=== PATIENT | male | born 1990 | race Caucasian/White ===

== ENCOUNTER 2022-06-28 13:31 | Emergency (ER) | payer SELFPAY ==
[~2022-06-28] VITALS: Ht 170 cm; Wt 79.0 kg
[~2022-06-28 13:31] MED LIST: ACHD5005 PO; DAPS100T3 PO; DOXY-311 PO; HYDR28CR10 TP; MELA1TAB16 PO; NAPR220C11 PO; PRD20T PO
[2022-06-28] MEDS ORDERED: NS IV 1000 ML 1,000 ML IV SCH (13:45)
[2022-06-28] MEDS ORDERED: KETOROLAC 30 MG/ML VIAL IV ONE (13:45)
[2022-06-28] MEDS ORDERED: ONDANSETRON 4 MG/2 ML (SDV) Z0FRAN IVP ONE (13:45)
--- NOTE | 2022-06-28 13:45 | ED Abdominal Pain ---
General Chief Complaint: Abdominal/GI Problems Stated Complaint: ABDOMINAL PAIN Nursing Triage Note: RIGHT SIDED FLANK PAIN THAT STARTED THIS MORNING. Source of Information: Patient Exam Limitations: No Limitations History of Present Illness Date Seen by Provider: Jun 28, 2022 Time Seen by Provider: 13:43 Initial Comments Patient presents to the emergency department with right sided flank pain that started this AM. No history of of kidney stones that he is aware of. Denies nausea, vomiting, diarrhea. Denies dysuria. Does admit to meth use. Timing/Duration: 4-6 Hours Severity/Quality: Moderate, Aching Location: Flank (right flank) Radiation: No Radiation Activities at Onset: None Modifying Factors: Improves With Resting Associated Symptoms: Back Pain; No Diaphoresis, No Fever/Chills, No Fatigue, No Headache, No Heartburn, No Nausea/Vomiting Allergies and Home Medications Allergies Coded Allergies: menthol (Verified Allergy, Mild, 11/21/12) Patient Home Medication List Home Medication List Reviewed: Yes Dapsone (Dapsone) 100 Mg Tablet, 100 MG PO DAILY Prescribed by: TATIANA MCDONALD on 05/17/161416 Doxycycline Monohydrate (Doxycycline Monohydrate) 100 Mg Capsule, 100 MG PO BID Prescribed by: TATIANA MCDONALD on 05/17/16 141 Hydrocodone Bit/Acetaminophen (HYDROcodone/APAP 5 MG/325 MG TAB) 1 Tab Tab, 1 TAB PO Q6H Prescribed by: Lupe Hart on 06/28/22 151 Naproxen Sodium (Aleve) 220 Mg Capsule, 220 MG PO Q12H PRN for PAIN, (Reported) Entered as Reported by: ROCKY TORRES on 05/17/16 0011 Ondansetron (Ondansetron Odt) 4 Mg Tab.rapdis, 4 MG SL Q4H PRN for NAUSEA/VOMITING Prescribed by: Lupe Hart on 06/28/22 151 Tamsulosin HCl (Flomax) 0.4 Mg Cap, 0.4 MG PO DAILY Prescribed by: Lupe Hart on 06/28/22 151 Review of Systems Review of Systems Constitutional: No chills, No dizziness, No fever Respiratory: No Symptoms Reported Cardiovascular: No Symptoms Reported Gastrointestinal: Denies Abdominal Pain, Denies Diarrhea, Denies Nausea, Denies Vomiting Genitourinary: Denies Burning, Denies Drainage, Denies Frequency; Flank Pain (right sided); Denies Urgency Skin: no symptoms reported All Other Systems Reviewed Negative Unless Noted: Yes Past [id number]-[id number] Hx Patient Social History Tobacco Use?: Yes Smoking Status: Current Everyday Smoker Substance use?: Yes Substance type: Methamphetamine Alcohol Use?: No Immunizations Up To Date Tetanus Booster (TDap): Less than 5yrs Seasonal Allergies Seasonal Allergies: No Past Medical History Reproductive Disorders: No Sexually Transmitted Disease: No Fractures Hyperthyroidism ADD/ADHD Family Medical History Reviewed Nursing Family Hx Abdominal aortic aneurysm paternal grandfather, Onset:Unknown Arthritis paternal grandfather, Onset:Unknown Diabetes mellitus 19 FATHER, Onset:Unknown FHx: COPD (chronic obstructive pulmonary disease) paternal grandmother, Onset:Unknown No Pertinent Family Hx Physical Exam Vital Signs Vital Signs - First Documented 06/28/22 13:38 Temp 36.8 Resp 70 B/P (MAP) 148/96 (113) Pulse Ox 98 O2 Delivery Room Air Capillary Refill : Less Than 3 Seconds Height/Weight/BMI Height: 5'10.00" Weight: 160lbs. 3.0oz. [id number]; 27.00 BMI Method:Stated General Appearance: mild distress (pain) Respiratory: chest non-tender, lungs clear, normal breath sounds, no respiratory distress, no accessory muscle use Cardiovascular: regular rate, rhythm, no edema Gastrointestinal: normal bowel sounds, non tender, soft, other (right flank pain) Extremities: normal range of motion, non-tender Back: CVA tenderness (R); No CVA tenderness (L) Neurologic/Psychiatric: alert, normal mood/affect, oriented x 3 Skin: normal color, warm/dry Progress/Results/Core Measures Results/Orders Lab Results Laboratory Tests Test 06/28/22 13:46 06/28/22 13:54 Range/Units White Blood Count 9.9 4.3-11.0 10^3/uL Red Blood Count 5.47 4.30-5.52 10^6/uL Hemoglobin 15.9 13.3-17.7 g/dL Hematocrit 46 40-54 % Mean Corpuscular Volume 85 80-99 fL Mean Corpuscular Hemoglobin 29 25-34 pg Mean Corpuscular Hemoglobin Concent 34 32-36 g/dL Red Cell Distribution Width 12.3 10.0-14.5 % Platelet Count 243 130-400 10^3/uL Mean Platelet Volume 10.5 9.0-12.2 fL Immature Granulocyte % (Auto) 0 % Neutrophils (%) (Auto) 71 42-75 % Lymphocytes (%) (Auto) 21 12-44 % Monocytes (%) (Auto) 5 0-12 % Eosinophils (%) (Auto) 2 0-10 % Basophils (%) (Auto) 0 0-10 % Neutrophils # (Auto) 7.1 1.8-7.8 10^3/uL Lymphocytes # (Auto) 2.1 1.0-4.0 10^3/uL Monocytes # (Auto) 0.5 0.0-1.0 10^3/uL Eosinophils # (Auto) 0.2 0.0-0.3 10^3/uL Basophils # (Auto) 0.0 0.0-0.1 10^3/uL Immature Granulocyte # (Auto) 0.0 0.0-0.1 10^3/uL Sodium Level 139 135-145 MMOL/L Potassium Level 4.1 3.6-5.0 MMOL/L Chloride Level 108 H 98-107 MMOL/L Carbon Dioxide Level 21 21-32 MMOL/L Anion Gap 10 5-14 MMOL/L Blood Urea Nitrogen 17 7-18 MG/DL Creatinine 1.34 H 0.60-1.30 MG/DL Estimat Glomerular Filtration Rate 73 BUN/Creatinine Ratio 13 Glucose Level 151 H 70-105 MG/DL Calcium Level 9.4 8.5-10.1 MG/DL Corrected Calcium 9.1 8.5-10.1 MG/DL Total Bilirubin 0.4 0.1-1.0 MG/DL Aspartate Amino Transf (AST/SGOT) 14 5-34 U/L Alanine Aminotransferase (ALT/SGPT) 13 0-55 U/L Alkaline Phosphatase 94 40-136 U/L Total Protein 7.2 6.4-8.2 GM/DL Albumin 4.4 3.2-4.5 GM/DL Urine Color YELLOW Urine Clarity CLEAR Urine pH 6.0 5-9 Urine Specific [place] >=1.030 1.016-1.022 Urine Protein NEGATIVE NEGATIVE Urine Glucose (UA) NEGATIVE NEGATIVE Urine Ketones NEGATIVE NEGATIVE Urine Nitrite NEGATIVE NEGATIVE Urine Bilirubin NEGATIVE NEGATIVE Urine Urobilinogen 1.0 < = 1.0 MG/DL Urine Leukocyte Esterase NEGATIVE NEGATIVE Urine RBC (Auto) 3+ H NEGATIVE Urine RBC 50-100 H /HPF Urine WBC RARE /HPF Urine Squamous Epithelial Cells RARE /HPF Urine Crystals NONE /LPF Urine Bacteria NEGATIVE /HPF Urine Casts NONE /LPF Urine Mucus SMALL H /LPF Urine Culture Indicated NO Urine Opiates Screen NEGATIVE NEGATIVE Urine Oxycodone Screen NEGATIVE NEGATIVE Urine Methadone Screen NEGATIVE NEGATIVE Urine Propoxyphene Screen NEGATIVE NEGATIVE Urine Barbiturates Screen NEGATIVE NEGATIVE Ur Tricyclic Antidepressants Screen NEGATIVE NEGATIVE Urine Phencyclidine Screen NEGATIVE NEGATIVE Urine Amphetamines Screen POSITIVE H NEGATIVE Urine Methamphetamines Screen POSITIVE H NEGATIVE Urine Benzodiazepines Screen NEGATIVE NEGATIVE Urine Cocaine Screen NEGATIVE NEGATIVE Urine Cannabinoids Screen NEGATIVE NEGATIVE My Orders Orders - LUPE HART APRN Ct Abd/Pelvis Wo(Kidney Stone) (06/28/22 13:45) Ed Iv/Invasive Line Start (06/28/22 13:45) Ua Culture If Indicated (06/28/22 13:45) Ketorolac Injection (Toradol Injection) (06/28/22 13:45) Ns Iv 1000 Ml (Sodium Chloride 0.9%) (06/28/22 13:45) Ondansetron Injection (Zofran Injectio (06/28/22 13:45) Cbc With Automated Diff (06/28/22 13:45) Comprehensive Metabolic Panel (06/28/22 13:45) Drug Screen Stat (Urine) (06/28/22 13:45) Fentanyl Inj (Sublimaze Injection) (06/28/22 15:00) Hydrocodone/Apap 5/325 Tablet (Lortab 5 (06/28/22 15:00) Medications Given in ED Current Medications Medications Dose Ordered Sig/Thiago Route Start Time Stop Time Status Last Admin Dose Admin Acetaminophen/ Hydrocodone Bitart 1 ea ONCE ONCE PO 06/28/22 15:00 06/28/22 15:01 DC 06/28/22 14:54 1 EA Fentanyl Citrate 50 mcg ONCE ONCE IVP 06/28/22 15:00 06/28/22 15:01 DC 06/28/22 14:54 50 MCG Ketorolac Tromethamine 30 mg ONCE ONCE IV 06/28/22 13:45 06/28/22 13:47 DC 06/28/22 14:00 30 MG Ondansetron HCl 4 mg ONCE ONCE IVP 06/28/22 13:45 06/28/22 13:47 DC 06/28/22 14:00 4 MG Vital Signs/I&O 06/28/22 13:38 Temp 36.8 Resp 70 B/P (MAP) 148/96 (113) Pulse Ox 98 O2 Delivery Room Air Blood Pressure Mean: 113 Progress Progress Note : Progress Note Patient presents to the emergency department for right sided flank pain. No history of kidney stones that he is aware of. Took medication at home with little to no change in symptoms. 1445: Patient reports that his pain is better at this time but is still having pain. Will give some Fentanyl and then some Lortab while here and then likely discharge home shortly after that. 1515: Patient was sleeping in room. Reports that pain is better. Will send prescriptions to pharmacy. Instructed that he needs to follow up with Urology tomorrow. Reasons to return to the ER were discussed with patient in addition. Departure Impression Primary Impression: Kidney stone Disposition: HOME, SELF-CARE Condition: Stable Departure-Patient Inst. Decision time for Depature: 15:15 Referrals: GENARO,LOCAL PHYSICIAN (PCP) Primary Care Physician DANIA MIRANDA MD Patient Instructions: Kidney Stones in Adults Add. Discharge Instructions: 1. Home and rest. 2. Push fluids. 3. Alternate Tylenol/Ibuprofen as needed for pain. 4. Follow up with PCP as needed. 5. Follow up with Urologist this week. 6. Zofran as needed for nausea. 7. Flomax as directed. 8. Hydrocodone as needed for severe pain. This medication can cause constipation so consider taking a stool softner while on this medication. No driving while taking this medication. 9. Return here if worse or concerns. All discharge instructions reviewed with patient and/or family. Voiced understanding. Scripts Ondansetron (Ondansetron Odt) 4 Mg Tab.rapdis 4 MG SL Q4H PRN for NAUSEA/VOMITING, #14 TAB Prov: LUPE HART APRN 06/28/22 Hydrocodone Bit/Acetaminophen (HYDROcodone/APAP 5 MG/325 MG TAB) 1 Tab Tab 1 TAB PO Q6H for Pain, #8 TAB 0 Refills Prov: LUPE HART APRN 06/28/22 Tamsulosin HCl (Flomax) 0.4 Mg Cap 0.4 MG PO DAILY for 14 Days, #14 CAP Prov: LUPE HART APRN 06/28/22 Work/School Note: Work Release Form Date Seen in the Emergency Department: Jun 28, 2022 Return to Work: Jul 01, 2022 Restrictions: No Restrictions LUPE HART APRN Jun 28, 2022 13:45
[2022-06-28 13:54] LABS: BASOPHILS % (AUTO) 0 % (0-10); EOSINOPHILS # (AUTO) 0.2 10^3/uL (0.0-0.3); EOSINOPHILS % (AUTO) 2 % (0-10); HEMATOCRIT 46 % (40-54); HEMOGLOBIN 15.9 g/dL (13.3-17.7); LYMPHOCYTES # (AUTO) 2.1 10^3/uL (1.0-4.0); LYMPHOCYTES % (AUTO) 21 % (12-44); MEAN CORPUSCULAR HEMOGLOBIN 29 pg (25-34); MEAN CORPUSCULAR HGB CONC 34 g/dL (32-36); MEAN CORPUSCULAR VOLUME 85 fL (80-99); MEAN PLATELET VOLUME 10.5 fL (9.0-12.2); MONOCYTES # (AUTO) 0.5 10^3/uL (0.0-1.0); MONOCYTES % (AUTO) 5 % (0-12); NEUTROPHILS # (AUTO) 7.1 10^3/uL (1.8-7.8); NEUTROPHILS % (AUTO) 71 % (42-75); PLATELET COUNT 243 10^3/uL (130-400); WHITE BLOOD COUNT 9.9 10^3/uL (4.3-11.0)
[2022-06-28 14:04] LABS: BILIRUBIN,URINE NEGATIVE (NEGATIVE); CLARITY,URINE CLEAR; COLOR,URINE YELLOW; GLUCOSE, URINE (UA) NEGATIVE (NEGATIVE); KETONES,URINE NEGATIVE (NEGATIVE); LEUKOCYTE ESTERASE ,URINE NEGATIVE (NEGATIVE); NITRITE,URINE NEGATIVE (NEGATIVE); PROTEIN,URINE NEGATIVE (NEGATIVE)
[2022-06-28 14:06] LABS: ALBUMIN 4.4 GM/DL (3.2-4.5); POTASSIUM 4.1 MMOL/L (3.6-5.0)
[2022-06-28 14:07] LABS: CALCIUM 9.4 MG/DL (8.5-10.1)
[2022-06-28 14:09] LABS: TOTAL PROTEIN 7.2 GM/DL (6.4-8.2)
[2022-06-28 14:10] LABS: BILIRUBIN,TOTAL 0.4 MG/DL (0.1-1.0)
[2022-06-28 14:12] LABS: CREATININE SERUM 1.34 MG/DL (0.60-1.30)
[2022-06-28 14:13] LABS: AMPHETAMINE SCREEN, URINE POSITIVE (NEGATIVE); BARBITURATE SCREEN URINE NEGATIVE (NEGATIVE); BENZODIAZEPINES SCREEN URINE NEGATIVE (NEGATIVE); CANNABINOID SCREEN, URINE NEGATIVE (NEGATIVE); COCAINE SCREEN URINE NEGATIVE (NEGATIVE); METHADONE STAT NEGATIVE (NEGATIVE); OPIATE SCREEN URINE NEGATIVE (NEGATIVE); OXYCODONE STAT NEGATIVE (NEGATIVE); PROPOXYPHENE STAT NEGATIVE (NEGATIVE); TRICYCLIC ANTIDEPRESSANTS SCRE NEGATIVE (NEGATIVE)
[2022-06-28 14:14] LABS: RBC,URINE 50-100 /HPF; WBC,URINE RARE /HPF
[2022-06-28 14:16] LABS: BACTERIA,URINE NEGATIVE /HPF; SQUAMOUS EPITHELIAL CELL,UR RARE /HPF
--- NOTE | 2022-06-28 14:34 | Diagnostic Imaging Report ---
PROCEDURE: CT urinary tract, rule out kidney stone. TECHNIQUE: Multiple contiguous axial images were obtained through the abdomen and pelvis without the use of intravenous contrast. Auto Exposure Controls were utilized during the CT exam to meet ALARA standards for radiation dose reduction. INDICATION: 32-year-old male, right flank pain starting today. CORRELATION STUDY: None. FINDINGS: LOWER THORAX: Clear. LIVER: Unremarkable. GALLBLADDER: Present and unremarkable. No bile duct dilatation. SPLEEN: Unremarkable. PANCREAS: Unremarkable. ADRENAL GLANDS: Unremarkable. KIDNEYS: 3 mm stone at the right UVJ results in mild to moderate right-sided obstruction. Slight engorgement of the right kidney. Left kidney collecting system unremarkable. ABDOMINAL AORTA: Unremarkable, nonaneurysmal. GASTROINTESTINAL TRACT: No obstruction or inflammation. Normal appendix. URINARY BLADDER: Decompressed. REPRODUCTIVE: Prostate gland unremarkable. OSSEOUS STRUCTURES: Nonacute pars articularis defect L5 level with trace spondylolisthesis at L5 on S1. Questionable femoral acetabular impingement configuration bilateral hips. OTHER: None. IMPRESSION: 1. Approximately 3 mm stone at the right UVJ. Despite the rather small size of stenosis result in mild to moderate obstruction and some engorgement of the right kidney. Dictated by: Dictated on workstation # [id number]
[2022-06-28] MEDS ORDERED: HYDROcodone/APAP 5 MG/325 MG (LORTAB) TAB PO ONE (15:00)
[2022-06-28] MEDS ORDERED: fentaNYL INJ 100 MCG/2 ML AMP IVP ONE (15:00)
[2022-06-28] MEDS ORDERED: ACHD5005 PO (15:17)
[2022-06-28] MEDS ORDERED: ONDA4TAB11 SL (15:17)
[2022-06-28] MEDS ORDERED: TMSL.4C PO (15:17)
[2022-06-28 15:27] VITALS: BP 148/96
== END 2022-06-28 15:30 | disposition home or self-care (01) ==
LOC: EDUNIT# 13:31 → ER 13:33
DX: N20.0 Calculus of kidney (principal); F17.200 Nicotine dependence, unspecified, uncomplicated; Z28.310 Unvaccinated for COVID-19
CPT/HCPCS: 36415; 74176; 80053; 80306; 81000; 85025